=== PATIENT | female | born 1975 | race African-American/Black ===

== ENCOUNTER 2017-04-04 06:37 | Emergency (ER) | payer MEDICAID ==
[~2017-04-04] VITALS: Ht 162.6 cm; Wt 59.0 kg
[~2017-04-04 06:37] MED LIST: BACL-141 PO; CHOL100026 PO; CITA10TA69; CYCL-108 PO; GABA-531 PO; LORA1TAB PO; MORP15TA67; OMEP20TA80 PO; ONDA4TAB5 PO; PROT40 PO; SUCR1TAB; TECFIDERA PO
[2017-04-04] MEDS ORDERED: ONDANSETRON HCL 4MG/2ML VIAL IV ONE (07:30)
[2017-04-04] MEDS ORDERED: METHYLPREDNISOLONE SOD SUCC 125 MG/2 ML VIAL IV ONE (07:30)
[2017-04-04] MEDS ORDERED: FAMOTIDINE 20MG/2ML VIAL IV ONE (07:30)
[2017-04-04] MEDS ORDERED: BACLOFEN 10MG TABLET PO ONE (07:30)
[2017-04-04] MEDS ORDERED: MORPHINE SULFATE 2 MG/ML CPJ (NOT FOR IM USE) IV ONE (07:30)
[2017-04-04] MEDS ORDERED: SODIUM CHLORIDE 0.9% 1,000 ML IV ONE (07:30)
[2017-04-04] MEDS ORDERED: DIPHENHYDRAMINE 50MG/ML VIAL IV ONE (08:30)
[2017-04-04 08:56] LABS: BASOPHILS % 0.2 % (0.0-2.0); EOSINOPHILS % 0.2 % (0.0-5.0); HEMATOCRIT. 38.8 % (36.0-48.0); HEMOGLOBIN. 13.3 g/dL (12.0-16.0); LYMPHOCYTES % 8.5 % (20.0-50.0); MEAN CORPUSCULAR HEMOGLOBIN 32.8 pg (28.0-32.0); MEAN CORPUSCULAR HGB CONC 34.3 g/dL (31.0-37.0); MEAN CORPUSCULAR VOLUME 95.5 fL (81.0-99.0); MEAN PLATELET VOLUME 7.2 fl (7.4-10.4); MONOCYTES % 5.7 % (2.0-8.0); NEUTROPHILS % 85.4 % (40.0-76.0); PLATELET 199 x1000/uL (130-400); RED BLOOD CELL COUNT 4.06 mill/uL (4.2-5.4); RED CELL DISTRIBUTION WIDTH 14.3 % (11.6-14.6); WHITE BLOOD COUNT 9.1 x1000/uL (4.5-11.0)
[2017-04-04 09:08] LABS: ANION GAP 12; CALCIUM 8.6 mg/dL (8.5-10.1); CARBON DIOXIDE 23 mEq/L (21-32); CHLORIDE 108 mEq/L (98-107); INDEX HEMOLYSI 2 (1-3); INDEX ICTERIC 1 (1-4); INDEX LIPEMIC 1 (1-3); UREA NITROGEN BLOOD 12 mg/dL (7-21)
[2017-04-04 09:10] LABS: eGFR > 60 mL/min (>60)
[2017-04-04 09:59] VITALS: BP 108/65
[2017-04-04] MEDS ORDERED: ACETAMINOPHEN WITH CODEINE 300/30MG TABLET PO ONE (10:00)
== END 2017-04-04 10:01 | disposition home or self-care (01) ==
LOC: ER 07:26
DX: G35 Multiple sclerosis (principal); Z88.0 Allergy status to penicillin; Z79.82 Long term (current) use of aspirin; Z79.899 Other long term (current) drug therapy; Z98.51 Tubal ligation status; Z82.49 Family history of ischemic heart disease and other diseases of the circulatory system
CPT/HCPCS: 36415; 80048; 85025; 96374; 96375; 99284; J1200; J2270; J2405; J2930; J3490; J7030

== ENCOUNTER 2017-07-22 20:56 | Inpatient (IN) | payer MEDICAID ==
[~2017-07-22] VITALS: Ht 162.6 cm; Wt 56.0 kg
[~2017-07-22 20:56] MED LIST changes: -CHOL100026 PO; +CHOL100044 PO; +CITA10TA16; -CITA10TA69; -MORP15TA67; +MORP15TA67 PO; +OMEP20TA2 PO; -OMEP20TA80 PO
[2017-07-22] MEDS ORDERED: LORAZEPAM 2MG/ML CPJ IV ONE (21:30)
[2017-07-22 22:10] LABS: HEMATOCRIT. 33.2 % (36.0-48.0); HEMOGLOBIN. 11.5 g/dL (12.0-16.0); MEAN CORPUSCULAR HEMOGLOBIN 33.1 pg (28.0-32.0); MEAN CORPUSCULAR VOLUME 95.9 fL (81.0-99.0); MEAN PLATELET VOLUME 7.4 fl (7.4-10.4); PLATELET 207 x1000/uL (130-400); RED BLOOD CELL COUNT 3.46 mill/uL (4.2-5.4); RED CELL DISTRIBUTION WIDTH 13.3 % (11.6-14.6)
[2017-07-22 22:19] LABS: CARBON DIOXIDE 23 mEq/L (21-32); CHLORIDE 105 mEq/L (98-107); ETHANOL BLOOD < 10 mg/dL
[2017-07-22] MEDS ORDERED: ACETAMINOPHEN WITH CODEINE 300/30MG TABLET PO ONE (22:30)
[2017-07-22 23:21] LABS: CLARITY URINE CLEAR (CLEAR); COLOR URINE DARK YELLOW (YELLOW); GLUCOSE URINE NEGATIVE (NEGATIVE); KETONES URINE 1+ (NEGATIVE); LEUKOCYTE ESTERASE URINE TRACE (NEGATIVE); NITRITE URINE NEGATIVE (NEGATIVE); OCCULT BLOOD URINE TRACE (NEGATIVE); PH URINE 5.5 (4.5-8.0); PROTEIN URINE NEGATIVE (NEGATIVE); SPECIFIC GRAVITY URINE 1.022 (1.005-1.030)
[2017-07-22] MEDS ORDERED: MORPHINE SULFATE 4 MG/ML CPJ (NOT FOR IM USE) IV ONE (23:30)
[2017-07-22] MEDS ORDERED: DIPHENHYDRAMINE 50MG/ML VIAL IV ONE (23:30)
[2017-07-22 23:36] LABS: PLATELET ESTIMATE NORMAL
[2017-07-22 23:38] LABS: *AMPHETAMINES SCREEN URINE NEGATIVE (NEGATIVE); *BARBITURATES SCREEN URINE NEGATIVE (NEGATIVE); *BENZODIAZEPINES SCREEN URINE NEGATIVE (NEGATIVE); *COCAINE SCREEN URINE NEGATIVE (NEGATIVE); METHADONE URINE SCREEN NEGATIVE (NEGATIVE); PHENCYCLIDINE URINE SCREEN NEGATIVE (NEGATIVE)
[2017-07-22 23:41] LABS: CANNABINOID URINE SCREEN PRESUMTIVE POSITIVE (NEGATIVE); OPIATES URINE SCREEN PRESUMTIVE POSITIVE (NEGATIVE)
[2017-07-23] VITALS (7 sets, daily range): BP systolic 96–122; BP diastolic 44–68
[2017-07-23] MEDS ORDERED: CLONIDINE 0.1MG TABLET PO PRN (00:15)
[2017-07-23] MEDS ORDERED: MAGNESIUM/ALUMINUM HYDROXIDE/SIMETHICONE 30ML UDC PO PRN (00:15)
[2017-07-23] MEDS ORDERED: ONDANSETRON HCL 4MG/2ML VIAL IV PRN (00:15)
[2017-07-23] MEDS ORDERED: ACETAMINOPHEN 325MG TABLET PO PRN (00:15)
[2017-07-23] MEDS ORDERED: IPRATROPIUM/ALBUTEROL 0.5-3(2.5)MG/3ML NEB INH PRN (00:15)
[2017-07-23] MEDS ORDERED: POTASSIUM CHLORIDE 20MEQ TABLET SR PO SCH (06:00)
[2017-07-23] MEDS: HYDROCODONE/ACETAMINOPHEN 5/325MG TABLET PO PRN (07:56)
[2017-07-23] MEDS: LORAZEPAM 2MG/ML CPJ IV PRN ×2 (07:56→19:50)
[2017-07-23 07:57] LABS: CLARITY URINE CLEAR (CLEAR); COLOR URINE YELLOW (YELLOW); GLUCOSE URINE NEGATIVE (NEGATIVE); KETONES URINE 1+ (NEGATIVE); LEUKOCYTE ESTERASE URINE NEGATIVE (NEGATIVE); NITRITE URINE NEGATIVE (NEGATIVE); OCCULT BLOOD URINE 1+ (NEGATIVE); PROTEIN URINE NEGATIVE (NEGATIVE); SPECIFIC GRAVITY URINE 1.015 (1.005-1.030); UROBILINOGEN URINE 0.2 E.U./dL (0.2-1.0)
[2017-07-23 08:35] LABS: CARBON DIOXIDE 22 mEq/L (21-32); CHLORIDE 104 mEq/L (98-107)
[2017-07-23 08:45] LABS: CREATINE KINASE 63 IU/L (26-192); CREATINE KINASE MB FRACTION < 0.5 ng/mL (0.5-3.6); TROPONIN I < 0.02 ng/mL (0.00-0.04)
[2017-07-23] MEDS: LEVETIRACETAM 500MG/5ML CUP PO SCH ×2 (09:45→21:07)
[2017-07-23] MEDS: CHOLECALCIFEROL (D3) 1000 UNIT TABLET PO SCH (09:46)
[2017-07-23] MEDS: GABAPENTIN 300MG CAPSULE PO SCH ×3 (09:46→17:14)
[2017-07-23] MEDS: CYCLOBENZAPRINE 10MG TABLET PO SCH (09:47)
[2017-07-23] MEDS: BACLOFEN 10MG TABLET PO SCH ×3 (09:47→17:14)
[2017-07-23] MEDS: LORAZEPAM 1MG TABLET PO PRN (09:47)
[2017-07-23] MEDS: SODIUM CHLORIDE 0.9% 1,000 ML IV SCH (11:14)
[2017-07-23] MEDS: DIPHENHYDRAMINE 50MG/ML VIAL IV PRN ×2 (13:43→21:09)
[2017-07-23 15:53] LABS: CREATINE KINASE 57 IU/L (26-192); CREATINE KINASE MB FRACTION 0.6 ng/mL (0.5-3.6); TROPONIN I < 0.02 ng/mL (0.00-0.04)
[2017-07-23] MEDS: MORPHINE SULFATE 2 MG/ML CPJ (NOT FOR IM USE) IV PRN ×2 (17:15→21:12)
[2017-07-24] VITALS: BP 117/81
[2017-07-24] MEDS: LORAZEPAM 2MG/ML CPJ IV PRN ×2 (00:38→13:12)
[2017-07-24] MEDS: MORPHINE SULFATE 2 MG/ML CPJ (NOT FOR IM USE) IV PRN ×3 (01:04→09:17)
[2017-07-24] MEDS: SODIUM CHLORIDE 0.9% 1,000 ML IV SCH ×2 (01:04→21:18)
[2017-07-24] MEDS: DIPHENHYDRAMINE 50MG/ML VIAL IV PRN ×3 (03:09→23:00)
[2017-07-24 04:00] VITALS: BP 119/74
[2017-07-24 07:11] LABS: BASOPHILS % 0.4 % (0.0-2.0); EOSINOPHILS % 4.2 % (0.0-5.0); HEMATOCRIT. 34.8 % (36.0-48.0); LYMPHOCYTES % 18.2 % (20.0-50.0); MEAN CORPUSCULAR HEMOGLOBIN 33.1 pg (28.0-32.0); MEAN CORPUSCULAR VOLUME 96.4 fL (81.0-99.0); MEAN PLATELET VOLUME 7.4 fl (7.4-10.4); MONOCYTES % 13.7 % (2.0-8.0); NEUTROPHILS % 63.5 % (40.0-76.0); PLATELET 238 x1000/uL (130-400); RED BLOOD CELL COUNT 3.61 mill/uL (4.2-5.4); RED CELL DISTRIBUTION WIDTH 13.2 % (11.6-14.6)
[2017-07-24 08:00] VITALS: BP 116/72
[2017-07-24 08:49] LABS: CARBON DIOXIDE 22 mEq/L (21-32); CHLORIDE 108 mEq/L (98-107); HDL CHOLESTEROL 51 mg/dL (40-59); LDL CHOLESTEROL 191 mg/dL (5-100)
[2017-07-24] MEDS: GABAPENTIN 300MG CAPSULE PO SCH ×3 (08:54→17:29)
[2017-07-24] MEDS: BACLOFEN 10MG TABLET PO SCH ×3 (08:54→17:29)
[2017-07-24] MEDS: CYCLOBENZAPRINE 10MG TABLET PO SCH (08:59)
[2017-07-24] MEDS: CHOLECALCIFEROL (D3) 1000 UNIT TABLET PO SCH (08:59)
[2017-07-24] MEDS: LEVETIRACETAM 500MG/5ML CUP PO SCH ×3 (09:00→21:17)
[2017-07-24] MEDS: LORAZEPAM 1MG TABLET PO PRN ×2 (09:00→23:17)
[2017-07-24 12:00] VITALS: BP 100/66
[2017-07-24] MEDS: HYDROMORPHONE HCL/PF 2MG/ML CPJ IV PRN ×2 (15:06→21:18)
[2017-07-24 16:30] VITALS: BP 102/66
[2017-07-24 20:00] VITALS: BP 99/69
[2017-07-24] MEDS: ATORVASTATIN CALCIUM 20MG TABLET PO SCH (21:17)
[2017-07-25] VITALS: BP 99/58
[2017-07-25] MEDS: LORAZEPAM 2MG/ML CPJ IV PRN (01:15)
[2017-07-25] MEDS: HYDROMORPHONE HCL/PF 2MG/ML CPJ IV PRN ×5 (03:36→20:59)
[2017-07-25 04:10] VITALS: BP 115/76
[2017-07-25] MEDS: DIPHENHYDRAMINE 50MG/ML VIAL IV PRN ×3 (05:16→22:30)
[2017-07-25 07:36] LABS: HEMATOCRIT. 36.5 % (36.0-48.0); HEMOGLOBIN. 12.4 g/dL (12.0-16.0); MEAN CORPUSCULAR VOLUME 96.8 fL (81.0-99.0); MEAN PLATELET VOLUME 7.4 fl (7.4-10.4); PLATELET 240 x1000/uL (130-400); RED BLOOD CELL COUNT 3.76 mill/uL (4.2-5.4); RED CELL DISTRIBUTION WIDTH 13.1 % (11.6-14.6)
[2017-07-25 07:57] LABS: CARBON DIOXIDE 25 mEq/L (21-32); CHLORIDE 104 mEq/L (98-107)
[2017-07-25 08:00] VITALS: BP 99/69
[2017-07-25] MEDS: GABAPENTIN 300MG CAPSULE PO SCH ×3 (08:00→16:41)
[2017-07-25] MEDS: CHOLECALCIFEROL (D3) 1000 UNIT TABLET PO SCH (08:00)
[2017-07-25] MEDS: CYCLOBENZAPRINE 10MG TABLET PO SCH (08:00)
[2017-07-25] MEDS: LEVETIRACETAM 500MG/5ML CUP PO SCH ×2 (08:00→20:34)
[2017-07-25] MEDS: BACLOFEN 10MG TABLET PO SCH ×3 (08:00→16:41)
[2017-07-25 12:00] VITALS: BP 100/70
[2017-07-25] MEDS: SODIUM CHLORIDE 0.9% 1,000 ML IV SCH (12:30)
[2017-07-25] MEDS: TECFIDERA 240MG PO SCH ×2 (13:00→16:41)
[2017-07-25] MEDS: LORAZEPAM 1MG TABLET PO PRN (13:43)
[2017-07-25 14:33] LABS: PLATELET ESTIMATE NORMAL
[2017-07-25] MEDS: HYDROCODONE/ACETAMINOPHEN 5/325MG TABLET PO PRN (15:26)
[2017-07-25 16:00] VITALS: BP 90/61
[2017-07-25 20:00] VITALS: BP 97/59
[2017-07-25] MEDS: ATORVASTATIN CALCIUM 20MG TABLET PO SCH (20:34)
[2017-07-25] MEDS ORDERED: ZOLPIDEM TARTRATE 5MG TABLET PO PRN (22:00)
[2017-07-26] VITALS (7 sets, daily range): BP systolic 101–113; BP diastolic 47–74
[2017-07-26] MEDS: HYDROMORPHONE HCL/PF 2MG/ML CPJ IV PRN ×2 (01:04→12:43)
[2017-07-26] MEDS: LORAZEPAM 2MG/ML CPJ IV PRN ×2 (04:04→08:22)
[2017-07-26] MEDS: SODIUM CHLORIDE 0.9% 1,000 ML IV SCH (05:25)
[2017-07-26 06:40] LABS: BASOPHILS % 0.3 % (0.0-2.0); EOSINOPHILS % 4.1 % (0.0-5.0); HEMATOCRIT. 33.7 % (36.0-48.0); HEMOGLOBIN. 11.6 g/dL (12.0-16.0); LYMPHOCYTES % 14.6 % (20.0-50.0); MEAN CORPUSCULAR HEMOGLOBIN 32.9 pg (28.0-32.0); MEAN CORPUSCULAR VOLUME 95.9 fL (81.0-99.0); MEAN PLATELET VOLUME 7.3 fl (7.4-10.4); MONOCYTES % 14.8 % (2.0-8.0); NEUTROPHILS % 66.2 % (40.0-76.0); PLATELET 229 x1000/uL (130-400); RED BLOOD CELL COUNT 3.52 mill/uL (4.2-5.4); RED CELL DISTRIBUTION WIDTH 12.6 % (11.6-14.6)
[2017-07-26 07:14] LABS: CARBON DIOXIDE 25 mEq/L (21-32); CHLORIDE 104 mEq/L (98-107)
[2017-07-26] MEDS: CHOLECALCIFEROL (D3) 1000 UNIT TABLET PO SCH (08:22)
[2017-07-26] MEDS: LEVETIRACETAM 500MG/5ML CUP PO SCH (08:22)
[2017-07-26] MEDS: GABAPENTIN 300MG CAPSULE PO SCH ×3 (08:23→16:09)
[2017-07-26] MEDS: BACLOFEN 10MG TABLET PO SCH ×3 (08:23→16:09)
[2017-07-26] MEDS: CYCLOBENZAPRINE 10MG TABLET PO SCH (08:23)
[2017-07-26] MEDS: TECFIDERA 240MG PO SCH ×2 (08:24→17:00)
[2017-07-26] MEDS: LORAZEPAM 1MG TABLET PO PRN (16:09)
[2017-07-26] MEDS: HYDROCODONE/ACETAMINOPHEN 5/325MG TABLET PO PRN (17:28)
== END 2017-07-26 18:10 | disposition home or self-care (01) | DRG 53 ==
LOC: ER 20:56 → 7WST 23:20 → EDBEDREQ 23:23 → ENRESERV 23:42
PROVIDERS: ADMIT Internal Medicine; ATTEND Internal Medicine
DX: G40.909 Epilepsy, unspecified, not intractable, without status epilepticus (principal); G35 Multiple sclerosis; F32.9 Major depressive disorder, single episode, unspecified; E87.6 Hypokalemia; K21.9 Gastro-esophageal reflux disease without esophagitis; D64.9 Anemia, unspecified; F12.90 Cannabis use, unspecified, uncomplicated; F41.9 Anxiety disorder, unspecified; Z79.899 Other long term (current) drug therapy; Z82.49 Family history of ischemic heart disease and other diseases of the circulatory system; Z87.11 Personal history of peptic ulcer disease; Z91.14 Patient's other noncompliance with medication regimen; Z88.6 Allergy status to analgesic agent; Z88.0 Allergy status to penicillin; Z88.8 Allergy status to other drugs, medicaments and biological substances
CPT/HCPCS: 36415; 70450; 70551; 71010; 80048; 80053; 80061; 80305; 81001; 82550; 82553; 84443; 84484; 85025; 93970; 96374; 97166; 99285; C1893; G0482; J1170; J1200; J2060; J2270; J2405; J7030

== ENCOUNTER 2018-11-03 06:38 | Inpatient (IN) | payer MEDICAID ==
[~2018-11-03] VITALS: Ht 162.6 cm; Wt 60.3 kg
[~2018-11-03 06:38] MED LIST changes: +ATOR10TA69 PO; +DIPH25CA83 PO; +GABA800T PO; +LEVE500T19 PO; +MIDO5TAB PO; -MORP15TA67 PO; +ZOLP10TA2 PO
[2018-11-03] MEDS ORDERED: SODIUM CHLORIDE 0.9% 1,000 ML IV ONE ×2 (07:09→08:36)
[2018-11-03] MEDS ORDERED: FAMOTIDINE 20MG/2ML VIAL IV STA (07:09)
[2018-11-03] MEDS ORDERED: LORAZEPAM 2MG/ML CPJ IV ONE ×2 (07:15→08:45)
[2018-11-03] MEDS ORDERED: FENTANYL CITRATE/PF 50MCG/ML 2ML VIAL IV ONE ×2 (07:15→08:45)
[2018-11-03] MEDS ORDERED: DEXAMETHASONE 10 MG/ML VIAL IV ONE (07:15)
[2018-11-03] MEDS ORDERED: ONDANSETRON HCL 4MG/2ML INJ IV ONE (07:15)
[2018-11-03] MEDS ORDERED: LOPERAMIDE 2 MG/10 ML UDC PO ONE (07:45)
[2018-11-03 08:02] LABS: BASOPHILS % 0.2 % (0.0-2.0); EOSINOPHILS % 0.8 % (0.0-5.0); HEMATOCRIT. 35.5 % (36.0-48.0); HEMOGLOBIN. 12.1 g/dL (12.0-16.0); LYMPHOCYTES % 11.1 % (20.0-50.0); MEAN CORPUSCULAR HEMOGLOBIN 33.2 pg (28.0-32.0); MEAN CORPUSCULAR VOLUME 97.5 fL (81.0-99.0); MEAN PLATELET VOLUME 7.4 fl (7.4-10.4); MONOCYTES % 11.9 % (2.0-8.0); PLATELET 198 x1000/uL (130-400); RED BLOOD CELL COUNT 3.64 mill/uL (4.2-5.4); RED CELL DISTRIBUTION WIDTH 13.1 % (11.6-14.6)
[2018-11-03 08:05] LABS: CHLORIDE 106 mEq/L (98-107)
[2018-11-03 08:08] LABS: INR 1.1; PARTIAL THROMBOPLASTIN TIME 25.5 sec (23.4-31.0); PROTHROMBIN TIME 10.7 sec (9.1-11.1)
[2018-11-03 08:15] LABS: CLARITY URINE CLEAR (CLEAR); COLOR URINE YELLOW (YELLOW); KETONES URINE 1+ (NEGATIVE); LEUKOCYTE ESTERASE URINE NEGATIVE (NEGATIVE); NITRITE URINE NEGATIVE (NEGATIVE); OCCULT BLOOD URINE TRACE (NEGATIVE); PH URINE 5.5 (4.5-8.0); PROTEIN URINE NEGATIVE (NEGATIVE); SPECIFIC GRAVITY URINE 1.015 (1.005-1.030)
[2018-11-03 08:20] LABS: HCG SCREEN NEGATIVE
[2018-11-03] MEDS ORDERED: IPRATROPIUM/ALBUTEROL 0.5-3(2.5)MG/3ML NEB INH PRN (10:30)
[2018-11-03] MEDS ORDERED: CLONIDINE 0.1MG TABLET PO PRN (10:30)
[2018-11-03] MEDS ORDERED: HYDROCODONE/ACETAMINOPHEN 5/325MG TABLET PO PRN (10:30)
[2018-11-03] MEDS ORDERED: DOCUSATE SODIUM 100MG CAPSULE PO PRN (10:30)
[2018-11-03] MEDS ORDERED: ACETAMINOPHEN 325MG TABLET PO PRN (10:30)
[2018-11-03] MEDS ORDERED: POTASSIUM CHLORIDE 20MEQ/PACKET PO NR (10:30)
[2018-11-03 11:20] VITALS: BP 104/63
[2018-11-03 14:09] VITALS: BP 104/63
[2018-11-03] MEDS: CYCLOBENZAPRINE 10MG TABLET PO SCH ×2 (14:35→21:52)
[2018-11-03 16:00] VITALS: BP 110/73
[2018-11-03] MEDS: CHOLECALCIFEROL (D3) 1000 UNIT TABLET PO SCH (16:06)
[2018-11-03] MEDS: HYDROMORPHONE HCL/PF 2MG/ML CPJ IV PRN ×2 (16:07→20:28)
[2018-11-03] MEDS: BISACODYL 10MG SUPP PR SCH (17:15)
[2018-11-03] MEDS ORDERED: GADOBENATE DIMEGLUMINE 529 MG/ML 10ML IV ONE (19:24)
[2018-11-03 20:00] VITALS: BP 113/59
[2018-11-03] MEDS: ATORVASTATIN CALCIUM 10MG TABLET PO SCH (20:27)
[2018-11-03] MEDS: DULOXETINE HCL 30MG DR CAPSULE PO SCH (20:27)
[2018-11-03] MEDS: SUCRALFATE 1G TABLET PO SCH (20:28)
[2018-11-03] MEDS: LEVETIRACETAM 500MG TABLET PO SCH (20:28)
[2018-11-03] MEDS: TECFIDERA 240 MG PO SCH (21:52)
[2018-11-03] MEDS: DIPHENHYDRAMINE 25MG CAPSULE PO PRN (22:25)
[2018-11-03] MEDS: GABAPENTIN 400MG CAPSULE PO SCH (23:12)
[2018-11-03] MEDS: ZOLPIDEM TARTRATE 5MG TABLET PO PRN (23:13)
[2018-11-04] VITALS: BP 115/64
[2018-11-04] MEDS: HYDROMORPHONE HCL/PF 2MG/ML CPJ IV PRN ×5 (00:19→22:18)
[2018-11-04 03:34] LABS: *AMPHETAMINES SCREEN URINE NEGATIVE (NEGATIVE); *BARBITURATES SCREEN URINE NEGATIVE (NEGATIVE); *BENZODIAZEPINES SCREEN URINE NEGATIVE (NEGATIVE); *COCAINE SCREEN URINE NEGATIVE (NEGATIVE)
[2018-11-04 03:35] LABS: METHADONE URINE SCREEN NEGATIVE (NEGATIVE); OPIATES URINE SCREEN NEGATIVE (NEGATIVE); PHENCYCLIDINE URINE SCREEN NEGATIVE (NEGATIVE)
[2018-11-04 03:36] LABS: CANNABINOID URINE SCREEN PRESUMTIVE POSITIVE (NEGATIVE)
[2018-11-04 04:00] VITALS: BP 114/50
[2018-11-04] MEDS: CYCLOBENZAPRINE 10MG TABLET PO SCH ×3 (05:04→21:55)
[2018-11-04] MEDS: ONDANSETRON HCL 4MG/2ML INJ IV PRN ×2 (05:04→22:17)
[2018-11-04] MEDS: DIPHENHYDRAMINE 25MG CAPSULE PO PRN (05:04)
[2018-11-04] MEDS: GABAPENTIN 400MG CAPSULE PO SCH ×3 (05:04→21:55)
[2018-11-04 06:38] LABS: BASOPHILS % 0.1 % (0.0-2.0); EOSINOPHILS % 0.4 % (0.0-5.0); HEMATOCRIT. 33.9 % (36.0-48.0); HEMOGLOBIN. 11.6 g/dL (12.0-16.0); LYMPHOCYTES % 14.4 % (20.0-50.0); MEAN CORPUSCULAR HEMOGLOBIN 33.4 pg (28.0-32.0); MEAN CORPUSCULAR VOLUME 97.3 fL (81.0-99.0); MEAN PLATELET VOLUME 7.1 fl (7.4-10.4); MONOCYTES % 12.4 % (2.0-8.0); NEUTROPHILS % 72.7 % (40.0-76.0); PLATELET 190 x1000/uL (130-400); RED BLOOD CELL COUNT 3.48 mill/uL (4.2-5.4); RED CELL DISTRIBUTION WIDTH 12.9 % (11.6-14.6)
[2018-11-04] MEDS: OMEPRAZOLE 20MG CAPSULE EXTENDED RELEASE PO SCH (06:46)
[2018-11-04] MEDS: SUCRALFATE 1G TABLET PO SCH ×4 (06:46→22:17)
[2018-11-04 06:57] LABS: CHLORIDE 106 mEq/L (98-107)
[2018-11-04 07:05] LABS: LDL CHOLESTEROL 108 mg/dL (5-100)
[2018-11-04 07:07] LABS: HDL CHOLESTEROL 53 mg/dL (40-59)
[2018-11-04] MEDS: MIDODRINE HCL 5MG TABLET PO SCH ×3 (08:31→17:08)
[2018-11-04] MEDS: LEVETIRACETAM 500MG TABLET PO SCH ×2 (08:31→21:55)
[2018-11-04] MEDS: CITALOPRAM HYDROBROMIDE 10MG TABLET PO SCH (08:31)
[2018-11-04] MEDS: CHOLECALCIFEROL (D3) 1000 UNIT TABLET PO SCH (08:31)
[2018-11-04] MEDS: DOCUSATE SODIUM 100MG CAPSULE PO SCH ×2 (08:32→17:08)
[2018-11-04] MEDS: TECFIDERA 240 MG PO SCH ×2 (08:32→17:08)
[2018-11-04] MEDS: ASCORBIC ACID 500 MG TABLET PO SCH (08:32)
[2018-11-04] MEDS: ZINC SULFATE 220 MG ( 50 ) CAPSULE PO SCH (08:32)
[2018-11-04] MEDS: DULOXETINE HCL 30MG DR CAPSULE PO SCH ×2 (08:32→21:55)
[2018-11-04] MEDS: BISACODYL 10MG SUPP PR SCH (08:33)
[2018-11-04] MEDS ORDERED: CHOLECALCIFEROL (D3) 1000 UNIT TABLET PO SCH (09:00)
[2018-11-04] MEDS ORDERED: TAMS0.4C31 PO (11:53)
[2018-11-04] MEDS: BACITRACIN/POLYMYXIN B SULFATE OINT 15GM TOP SCH (16:00)
[2018-11-04] MEDS ORDERED: NA PHOS,M-B/NA PHOS,DI-BA ENEMA 118ML PR NR (16:30)
[2018-11-04] MEDS: LACTULOSE 20G/30ML UDC PO SCH ×2 (17:07→21:56)
[2018-11-04 20:00] VITALS: BP 104/66
[2018-11-04] MEDS: POLYETHYLENE GLYCOL 3350 (17GM) 1 DOSE PACK PO SCH (21:00)
[2018-11-04] MEDS: ATORVASTATIN CALCIUM 10MG TABLET PO SCH (21:55)
[2018-11-04] MEDS: ZOLPIDEM TARTRATE 5MG TABLET PO PRN (22:17)
[2018-11-05] VITALS: BP 106/57
[2018-11-05 04:00] VITALS: BP 99/63
[2018-11-05] MEDS: OMEPRAZOLE 20MG CAPSULE EXTENDED RELEASE PO SCH (05:54)
[2018-11-05] MEDS: CYCLOBENZAPRINE 10MG TABLET PO SCH ×3 (05:54→21:54)
[2018-11-05] MEDS: SUCRALFATE 1G TABLET PO SCH ×4 (05:55→21:54)
[2018-11-05] MEDS: ONDANSETRON HCL 4MG/2ML INJ IV PRN ×2 (05:55→21:54)
[2018-11-05] MEDS: GABAPENTIN 400MG CAPSULE PO SCH ×3 (05:55→21:55)
[2018-11-05] MEDS: HYDROMORPHONE HCL/PF 2MG/ML CPJ IV PRN ×4 (05:56→21:57)
[2018-11-05 07:46] LABS: BASOPHILS % 0.3 % (0.0-2.0); EOSINOPHILS % 1.5 % (0.0-5.0); HEMATOCRIT. 36.3 % (36.0-48.0); HEMOGLOBIN. 12.3 g/dL (12.0-16.0); MEAN CORPUSCULAR HEMOGLOBIN 33.4 pg (28.0-32.0); MEAN CORPUSCULAR VOLUME 98.4 fL (81.0-99.0); MEAN PLATELET VOLUME 7.8 fl (7.4-10.4); MONOCYTES % 10.2 % (2.0-8.0); PLATELET 183 x1000/uL (130-400); RED BLOOD CELL COUNT 3.68 mill/uL (4.2-5.4); RED CELL DISTRIBUTION WIDTH 13.3 % (11.6-14.6)
[2018-11-05 08:14] LABS: CHLORIDE 102 mEq/L (98-107)
[2018-11-05] MEDS: LACTULOSE 20G/30ML UDC PO SCH (09:00)
[2018-11-05] MEDS: BISACODYL 10MG SUPP PR SCH (09:00)
[2018-11-05] MEDS: TECFIDERA 240 MG PO SCH ×2 (09:06→17:34)
[2018-11-05] MEDS: MIDODRINE HCL 5MG TABLET PO SCH ×3 (09:07→17:35)
[2018-11-05] MEDS: CITALOPRAM HYDROBROMIDE 10MG TABLET PO SCH (09:07)
[2018-11-05] MEDS: CHOLECALCIFEROL (D3) 1000 UNIT TABLET PO SCH (09:07)
[2018-11-05] MEDS: ZINC SULFATE 220 MG ( 50 ) CAPSULE PO SCH (09:07)
[2018-11-05] MEDS: LEVETIRACETAM 500MG TABLET PO SCH ×2 (09:07→21:54)
[2018-11-05] MEDS: ASCORBIC ACID 500 MG TABLET PO SCH (09:08)
[2018-11-05] MEDS: DULOXETINE HCL 30MG DR CAPSULE PO SCH ×2 (09:08→21:54)
[2018-11-05] MEDS: DOCUSATE SODIUM 100MG CAPSULE PO SCH ×2 (09:08→17:35)
[2018-11-05] MEDS: BACITRACIN/POLYMYXIN B SULFATE OINT 15GM TOP SCH (09:09)
[2018-11-05] MEDS ORDERED: TRAMADOL 50MG TABLET PO PRN (11:00)
[2018-11-05] MEDS: PREDNISONE 5MG TABLET PO SCH (11:25)
[2018-11-05] MEDS: SODIUM CHLORIDE 0.9% 500 ML IV ONE ×2 (11:26→13:49)
[2018-11-05] MEDS: OXYCODONE HCL 5MG TABLET PO SCH (17:00)
[2018-11-05 20:00] VITALS: BP 117/71
[2018-11-05] MEDS: POLYETHYLENE GLYCOL 3350 (17GM) 1 DOSE PACK PO SCH (21:00)
[2018-11-05] MEDS: ATORVASTATIN CALCIUM 10MG TABLET PO SCH (22:12)
[2018-11-05] MEDS: ZOLPIDEM TARTRATE 5MG TABLET PO PRN (23:09)
[2018-11-06] VITALS: BP 124/74
[2018-11-06 04:00] VITALS: BP 133/73
[2018-11-06] MEDS: SUCRALFATE 1G TABLET PO SCH ×2 (06:29→12:58)
[2018-11-06] MEDS: CYCLOBENZAPRINE 10MG TABLET PO SCH ×2 (06:29→15:00)
[2018-11-06] MEDS: OMEPRAZOLE 20MG CAPSULE EXTENDED RELEASE PO SCH (06:29)
[2018-11-06] MEDS: GABAPENTIN 400MG CAPSULE PO SCH ×2 (06:29→15:00)
[2018-11-06] MEDS: ONDANSETRON HCL 4MG/2ML INJ IV PRN (06:51)
[2018-11-06] MEDS: HYDROMORPHONE HCL/PF 2MG/ML CPJ IV PRN ×2 (06:52→11:23)
[2018-11-06 07:07] LABS: BASOPHILS % 0.2 % (0.0-2.0); EOSINOPHILS % 2.5 % (0.0-5.0); HEMATOCRIT. 36.6 % (36.0-48.0); HEMOGLOBIN. 12.4 g/dL (12.0-16.0); MEAN CORPUSCULAR VOLUME 97.5 fL (81.0-99.0); MEAN PLATELET VOLUME 7.3 fl (7.4-10.4); MONOCYTES % 12.2 % (2.0-8.0); NEUTROPHILS % 64.1 % (40.0-76.0); PLATELET 186 x1000/uL (130-400); RED BLOOD CELL COUNT 3.76 mill/uL (4.2-5.4); RED CELL DISTRIBUTION WIDTH 13.2 % (11.6-14.6)
[2018-11-06 07:33] LABS: CHLORIDE 102 mEq/L (98-107)
[2018-11-06] MEDS: BISACODYL 10MG SUPP PR SCH (09:00)
[2018-11-06] MEDS: TECFIDERA 240 MG PO SCH (09:06)
[2018-11-06] MEDS: BACITRACIN/POLYMYXIN B SULFATE OINT 15GM TOP SCH (09:10)
[2018-11-06] MEDS: LEVETIRACETAM 500MG TABLET PO SCH (09:10)
[2018-11-06] MEDS: ASCORBIC ACID 500 MG TABLET PO SCH (09:11)
[2018-11-06] MEDS: DOCUSATE SODIUM 100MG CAPSULE PO SCH (09:11)
[2018-11-06] MEDS: PREDNISONE 5MG TABLET PO SCH (09:11)
[2018-11-06] MEDS: ZINC SULFATE 220 MG ( 50 ) CAPSULE PO SCH (09:11)
[2018-11-06] MEDS: DULOXETINE HCL 30MG DR CAPSULE PO SCH (09:11)
[2018-11-06] MEDS: MIDODRINE HCL 5MG TABLET PO SCH ×2 (09:11→12:59)
[2018-11-06] MEDS: CITALOPRAM HYDROBROMIDE 10MG TABLET PO SCH (09:11)
[2018-11-06] MEDS: OXYCODONE HCL 5MG TABLET PO SCH ×2 (09:12→12:59)
[2018-11-06] MEDS: CHOLECALCIFEROL (D3) 1000 UNIT TABLET PO SCH (09:13)
[2018-11-06] MEDS ORDERED: OR220 PO (09:28)
[2018-11-06] MEDS ORDERED: PRED5TAB PO (09:28)
[2018-11-06] MEDS ORDERED: ASCO500T20 PO (09:28)
[2018-11-06] MEDS ORDERED: POLY17PO3 PO (09:28)
[2018-11-06] MEDS ORDERED: DOCU-138 PO (09:31)
[2018-11-06] MEDS ORDERED: POLYETHYLENE GLYCOL 3350 (17GM) 1 DOSE PACK PO SCH (14:30)
[2018-11-06 15:42] VITALS: BP 146/75
[2018-11-06 16:09] VITALS: BP 141/77
== END 2018-11-06 17:25 | disposition home health service (06) | DRG 347 ==
LOC: ER 06:38 → 6EST 08:56 → EDBEDREQ 09:04 → ENRESERV 10:09
PROVIDERS: ADMIT Internal Medicine; ATTEND Internal Medicine
DX: M48.061 Spinal stenosis, lumbar region without neurogenic claudication (principal); G82.50 Quadriplegia, unspecified; M48.02 Spinal stenosis, cervical region; G35 Multiple sclerosis; G95.9 Disease of spinal cord, unspecified; K59.2 Neurogenic bowel, not elsewhere classified; M54.16 Radiculopathy, lumbar region; L89.90 Pressure ulcer of unspecified site, unspecified stage; N31.9 Neuromuscular dysfunction of bladder, unspecified; M47.9 Spondylosis, unspecified; F41.9 Anxiety disorder, unspecified; E87.6 Hypokalemia; E78.00 Pure hypercholesterolemia, unspecified; G89.4 Chronic pain syndrome; G40.909 Epilepsy, unspecified, not intractable, without status epilepticus; F12.90 Cannabis use, unspecified, uncomplicated; F32.9 Major depressive disorder, single episode, unspecified; K21.9 Gastro-esophageal reflux disease without esophagitis; M25.78 Osteophyte, vertebrae; Z82.49 Family history of ischemic heart disease and other diseases of the circulatory system; Z98.1 Arthrodesis status; Z98.82 Breast implant status; Z98.891 History of uterine scar from previous surgery; Z88.0 Allergy status to penicillin; Z88.8 Allergy status to other drugs, medicaments and biological substances; Z98.51 Tubal ligation status
CPT/HCPCS: 36415; 70553; 71045; 72148; 72156; 74018; 80048; 80061; 80305; 81025; 83735; 84484; 84703; 93005; 93970; 96361; 96374; 96375; 97110; 97162; 97166; 97530; 99291; A9577; J1100; J1170; J2060; J2405; J3010; J3490; J7030; J7512; Q0163

== ENCOUNTER 2018-11-14 10:17 | Inpatient (IN) | payer MEDICAID ==
[~2018-11-14] VITALS: Ht 167.6 cm; Wt 64.9 kg
[~2018-11-14 10:17] MED LIST changes: +ASCO500T20 PO; -BACL-141 PO; -CITA10TA16; +CITA10TA16 PO; +DOCU-138 PO; -GABA-531 PO; +OR220 PO; +POLY17PO3 PO; +PRED5TAB PO; -PROT40 PO; -SUCR1TAB; +SUCR1TAB PO; +TAMS0.4C31 PO
[2018-11-14] MEDS ORDERED: SODIUM CHLORIDE 0.9% 1,000 ML IV ONE (11:13)
[2018-11-14] MEDS ORDERED: ONDANSETRON HCL 4MG/2ML INJ IV ONE (11:15)
[2018-11-14] MEDS ORDERED: FENTANYL CITRATE/PF 50MCG/ML 2ML VIAL IV ONE (11:15)
[2018-11-14] MEDS ORDERED: METHYLPREDNISOLONE SOD SUCC 125 MG/2 ML VIAL IV ONE (11:15)
[2018-11-14 11:22] LABS: BASOPHILS % 0.2 % (0.0-2.0); EOSINOPHILS % 1.8 % (0.0-5.0); HEMATOCRIT. 32.5 % (36.0-48.0); HEMOGLOBIN. 11.3 g/dL (12.0-16.0); LYMPHOCYTES % 13.8 % (20.0-50.0); MEAN CORPUSCULAR HEMOGLOBIN 33.6 pg (28.0-32.0); MEAN CORPUSCULAR VOLUME 97.1 fL (81.0-99.0); MEAN PLATELET VOLUME 7.4 fl (7.4-10.4); MONOCYTES % 10.1 % (2.0-8.0); NEUTROPHILS % 74.1 % (40.0-76.0); PLATELET 228 x1000/uL (130-400); RED BLOOD CELL COUNT 3.35 mill/uL (4.2-5.4); RED CELL DISTRIBUTION WIDTH 13.1 % (11.6-14.6)
[2018-11-14 11:28] LABS: CHLORIDE 105 mEq/L (98-107)
[2018-11-14 11:33] LABS: ETHANOL BLOOD < 10 mg/dL
[2018-11-14 11:35] LABS: HCG SCREEN NEGATIVE
[2018-11-14] MEDS ORDERED: GADOBENATE DIMEGLUMINE 529 MG/ML 10ML IV ONE (15:06)
[2018-11-14 16:24] LABS: INR 1.1; PROTHROMBIN TIME 10.8 sec (9.1-11.1)
[2018-11-14] MEDS ORDERED: DOCUSATE SODIUM 100MG CAPSULE PO PRN (17:30)
[2018-11-14] MEDS ORDERED: NITROGLYCERIN 0.4MG TABLET SL SL PRN (17:30)
[2018-11-14] MEDS ORDERED: ONDANSETRON HCL 4MG/2ML INJ IV PRN (17:30)
[2018-11-14] MEDS ORDERED: GUAIFENESIN 200MG/10ML SUGAR FREE UDC PO PRN (17:30)
[2018-11-14] MEDS ORDERED: ZOLPIDEM TARTRATE 5MG TABLET PO PRN (17:30)
[2018-11-14] MEDS ORDERED: HALOPERIDOL LACTATE 5MG/ML VIAL IM PRN (17:30)
[2018-11-14] MEDS ORDERED: IPRATROPIUM/ALBUTEROL 0.5-3(2.5)MG/3ML NEB INH PRN (17:30)
[2018-11-14] MEDS ORDERED: CLONIDINE 0.1MG TABLET PO PRN (17:30)
[2018-11-14] MEDS ORDERED: NA PHOS,M-B/NA PHOS,DI-BA ENEMA 118ML PR PRN (17:30)
[2018-11-14] MEDS ORDERED: TRAMADOL 50MG TABLET PO PRN (17:30)
[2018-11-14] MEDS ORDERED: MAGNESIUM/ALUMINUM HYDROXIDE/SIMETHICONE 30ML UDC PO PRN (17:30)
[2018-11-14] MEDS: LORAZEPAM 1MG TABLET PO PRN ×2 (18:51→23:18)
[2018-11-14 20:00] VITALS: BP 131/78
[2018-11-14] MEDS ORDERED: POTASSIUM CHLORIDE 10MEQ TABLET SR PO SCH (20:00)
[2018-11-14 20:13] LABS: CLARITY URINE TURBID (CLEAR); COLOR URINE YELLOW (YELLOW); KETONES URINE 4+ (NEGATIVE); LEUKOCYTE ESTERASE URINE NEGATIVE (NEGATIVE); NITRITE URINE NEGATIVE (NEGATIVE); OCCULT BLOOD URINE 3+ (NEGATIVE); PROTEIN URINE 2+ (NEGATIVE); SPECIFIC GRAVITY URINE 1.027 (1.005-1.030)
[2018-11-14 20:18] VITALS: BP 131/78
[2018-11-14] MEDS: FAMOTIDINE 20MG TABLET PO SCH (20:26)
[2018-11-14] MEDS: LEVETIRACETAM 500MG/5ML CUP PO SCH (20:26)
[2018-11-14 20:29] LABS: *AMPHETAMINES SCREEN URINE NEGATIVE (NEGATIVE); *BARBITURATES SCREEN URINE NEGATIVE (NEGATIVE)
[2018-11-14 20:30] LABS: *BENZODIAZEPINES SCREEN URINE NEGATIVE (NEGATIVE); *COCAINE SCREEN URINE NEGATIVE (NEGATIVE); METHADONE URINE SCREEN NEGATIVE (NEGATIVE); PHENCYCLIDINE URINE SCREEN NEGATIVE (NEGATIVE)
[2018-11-14 20:35] LABS: CANNABINOID URINE SCREEN PRESUMTIVE POSITIVE (NEGATIVE); OPIATES URINE SCREEN PRESUMTIVE POSITIVE (NEGATIVE)
[2018-11-14] MEDS ORDERED: ENOXAPARIN 40MG/0.4ML SYR SUBCUT SCH (21:00)
[2018-11-14] MEDS ORDERED: ATORVASTATIN CALCIUM 10MG TABLET PO SCH (21:00)
[2018-11-14] MEDS: ACETAMINOPHEN 325MG TABLET PO PRN (23:22)
[2018-11-15] VITALS: BP 145/67
[2018-11-15 04:00] VITALS: BP 133/80
[2018-11-15] MEDS: ACETAMINOPHEN 325MG TABLET PO PRN (06:57)
[2018-11-15] MEDS: LORAZEPAM 1MG TABLET PO PRN (07:06)
[2018-11-15 08:00] VITALS: BP 141/66
[2018-11-15] MEDS: FAMOTIDINE 20MG TABLET PO SCH (08:57)
[2018-11-15] MEDS: LEVETIRACETAM 500MG/5ML CUP PO SCH (08:57)
[2018-11-15] MEDS ORDERED: TECFIDERA 240 MG PO SCH ×2 (09:00)
[2018-11-15 11:03] VITALS: BP 141/62
== END 2018-11-15 13:32 | disposition home or self-care (01) | DRG 43 ==
LOC: ER 10:17 → 7WST 13:59 → EDBEDREQ 14:05 → ENRESERV 14:21
PROVIDERS: ADMIT Internal Medicine; ATTEND Internal Medicine
DX: G35 Multiple sclerosis (principal); E83.51 Hypocalcemia; D63.8 Anemia in other chronic diseases classified elsewhere; E78.00 Pure hypercholesterolemia, unspecified; E78.5 Hyperlipidemia, unspecified; E87.6 Hypokalemia; G89.4 Chronic pain syndrome; K21.9 Gastro-esophageal reflux disease without esophagitis; R29.6 Repeated falls; Z76.5 Malingerer [conscious simulation]; Z82.49 Family history of ischemic heart disease and other diseases of the circulatory system; Z98.891 History of uterine scar from previous surgery; Z88.0 Allergy status to penicillin; Z88.6 Allergy status to analgesic agent; Z88.9 Allergy status to unspecified drugs, medicaments and biological substances; Z98.51 Tubal ligation status; F12.10 Cannabis abuse, uncomplicated; F11.10 Opioid abuse, uncomplicated
CPT/HCPCS: 36415; 70486; 70553; 71045; 72100; 72141; 73502; 80305; 83036; 83735; 83880; 84484; 84703; 93005; 96374; 96375; 99291; A9577; G0482; J1630; J1650; J2405; J2930; J3010; J7030

== ENCOUNTER 2018-12-29 11:14 | Emergency (ER) | payer MEDICAID | END 2018-12-29 13:03 | disposition left against medical advice (07) | LOC: ER 11:26 | DX: R68.89 Other general symptoms and signs (principal); Z53.21 Procedure and treatment not carried out due to patient leaving prior to being seen by health care provider ==

== ENCOUNTER 2018-12-31 07:55 | Emergency (ER) | payer MEDICAID ==
[~2018-12-31] VITALS: Ht 170.2 cm; Wt 70.0 kg
[2018-12-31] MEDS ORDERED: SODIUM CHLORIDE 0.9% 1,000 ML IV ONE (09:10)
[2018-12-31] MEDS ORDERED: METHYLPREDNISOLONE SOD SUCC 125 MG/2 ML VIAL IV ONE (09:15)
[2018-12-31 09:47] LABS: BASOPHILS % 0.2 % (0.0-2.0); EOSINOPHILS % 0.6 % (0.0-5.0); HEMATOCRIT. 34.1 % (36.0-48.0); HEMOGLOBIN. 11.5 g/dL (12.0-16.0); LYMPHOCYTES % 10.2 % (20.0-50.0); MEAN CORPUSCULAR HEMOGLOBIN 32.9 pg (28.0-32.0); MEAN CORPUSCULAR VOLUME 97.4 fL (81.0-99.0); MEAN PLATELET VOLUME 7.7 fl (7.4-10.4); MONOCYTES % 10.4 % (2.0-8.0); NEUTROPHILS % 78.6 % (40.0-76.0); PLATELET 166 x1000/uL (130-400)
[2018-12-31 09:53] LABS: CHLORIDE 105 mEq/L (98-107)
[2018-12-31] MEDS ORDERED: FENTANYL CITRATE/PF 50MCG/ML 2ML VIAL IV ONE (10:15)
[2018-12-31 11:25] VITALS: BP 122/73
== END 2018-12-31 15:06 | disposition home or self-care (01) ==
LOC: ER 07:55
DX: J06.9 Acute upper respiratory infection, unspecified (principal); G35 Multiple sclerosis; K21.9 Gastro-esophageal reflux disease without esophagitis; E78.00 Pure hypercholesterolemia, unspecified; Z88.0 Allergy status to penicillin; Z88.6 Allergy status to analgesic agent; Z98.51 Tubal ligation status
CPT/HCPCS: 36415; 71045; 80053; 84484; 85025; 87804; 96374; 96375; 99284; J2930; J3010; J7030

== ENCOUNTER 2019-03-17 18:32 | Inpatient (IN) | payer MEDICAID ==
[~2019-03-17] VITALS: Ht 162.6 cm; Wt 56.7 kg
[2019-03-17 19:22] LABS: BASOPHILS % 0.2 % (0.0-2.0); EOSINOPHILS % 1.7 % (0.0-5.0); HEMATOCRIT. 34.9 % (36.0-48.0); HEMOGLOBIN. 11.8 g/dL (12.0-16.0); LYMPHOCYTES % 13.2 % (20.0-50.0); MEAN CORPUSCULAR HEMOGLOBIN 32.6 pg (28.0-32.0); MEAN CORPUSCULAR VOLUME 96.3 fL (81.0-99.0); MEAN PLATELET VOLUME 7.7 fl (7.4-10.4); MONOCYTES % 11.3 % (2.0-8.0); NEUTROPHILS % 73.6 % (40.0-76.0); PLATELET 179 x1000/uL (130-400); RED BLOOD CELL COUNT 3.63 mill/uL (4.2-5.4); RED CELL DISTRIBUTION WIDTH 13.4 % (11.6-14.6)
[2019-03-17 19:23] LABS: COLOR URINE YELLOW (YELLOW); KETONES URINE 1+ (NEGATIVE); LEUKOCYTE ESTERASE URINE NEGATIVE (NEGATIVE); NITRITE URINE NEGATIVE (NEGATIVE); OCCULT BLOOD URINE TRACE (NEGATIVE); PROTEIN URINE TRACE (NEGATIVE); SPECIFIC GRAVITY URINE 1.029 (1.005-1.030)
[2019-03-17 19:25] LABS: CLARITY URINE HAZY (CLEAR)
[2019-03-17 19:29] LABS: CHLORIDE 108 mEq/L (98-107); PROTHROMBIN TIME 10.6 sec (9.6-11.0)
[2019-03-17] MEDS ORDERED: METHYLPREDNISOLONE SOD SUCC 125 MG/2 ML VIAL IV ONE (19:45)
[2019-03-17] MEDS ORDERED: MORPHINE SULFATE 4 MG/ML CPJ (NOT FOR IM USE) IV ONE ×2 (19:45→21:15)
[2019-03-17] MEDS ORDERED: DIPHENHYDRAMINE 50MG/ML VIAL IV ONE ×2 (19:45→21:15)
[2019-03-17] MEDS ORDERED: FAMOTIDINE 20MG/2ML VIAL IV ONE (20:15)
[2019-03-17] MEDS ORDERED: ONDANSETRON HCL 4MG/2ML INJ IV ONE (20:15)
[2019-03-17] MEDS ORDERED: METHYLPREDNISOLONE SOD SUCC 40 MG/ML VIAL IV SCH (20:30)
[2019-03-17] MEDS ORDERED: ACETAMINOPHEN 325MG TABLET PO PRN (20:30)
[2019-03-17] MEDS ORDERED: HYDROCODONE/ACETAMINOPHEN 5/325MG TABLET PO PRN (20:30)
[2019-03-17] MEDS ORDERED: METHYLPREDNISOLONE SOD SUCC 125 MG/2 ML VIAL IV SCH (20:45)
[2019-03-17] MEDS: ATORVASTATIN CALCIUM 10MG TABLET PO SCH (22:30)
[2019-03-17] MEDS: GABAPENTIN 400MG CAPSULE PO SCH (22:30)
[2019-03-17] MEDS ORDERED: METHYLPREDNISOLONE SOD IV SCH (23:00)
[2019-03-17] MEDS ORDERED: SODIUM CHLORIDE 0.9% IV SCH (23:00)
[2019-03-18] VITALS: BP 104/47
[2019-03-18] MEDS: MORPHINE SULFATE 4 MG/ML CPJ (NOT FOR IM USE) IV PRN ×2 (00:34→05:36)
[2019-03-18] MEDS: DIPHENHYDRAMINE 25MG CAPSULE PO PRN ×2 (00:34→06:41)
[2019-03-18] MEDS ORDERED: LORA-249 MT (01:51)
[2019-03-18] MEDS ORDERED: METO5TAB86 MT (01:51)
[2019-03-18] MEDS ORDERED: BACL-141 MT (01:51)
[2019-03-18 04:00] VITALS: BP 109/61
[2019-03-18] MEDS: GABAPENTIN 400MG CAPSULE PO SCH ×3 (05:35→22:39)
[2019-03-18 06:34] LABS: HEMOGLOBIN. 12.2 g/dL (12.0-16.0); MEAN CORPUSCULAR HEMOGLOBIN 32.8 pg (28.0-32.0); MEAN CORPUSCULAR VOLUME 96.8 fL (81.0-99.0); MEAN PLATELET VOLUME 8.2 fl (7.4-10.4); PLATELET 183 x1000/uL (130-400); RED BLOOD CELL COUNT 3.73 mill/uL (4.2-5.4)
[2019-03-18] MEDS: OMEPRAZOLE 20MG CAPSULE EXTENDED RELEASE PO SCH (06:41)
[2019-03-18 07:00] LABS: CHLORIDE 104 mEq/L (98-107)
[2019-03-18 08:00] VITALS: BP 110/68
[2019-03-18] MEDS: MIDODRINE HCL 5MG TABLET PO SCH ×3 (08:19→17:27)
[2019-03-18 09:51] VITALS: BP 134/58
[2019-03-18] MEDS: HYDROMORPHONE HCL/PF 2MG/ML CPJ IV PRN ×4 (10:35→22:40)
[2019-03-18] MEDS: CITALOPRAM HYDROBROMIDE 10MG TABLET PO SCH (10:35)
[2019-03-18 12:10] VITALS: BP 126/54
[2019-03-18] MEDS: METOCLOPRAMIDE HCL 10MG/2ML VIAL IV SCH ×3 (12:22→23:00)
[2019-03-18] MEDS: LORAZEPAM 1MG TABLET PO PRN (12:38)
[2019-03-18] MEDS: CHOLECALCIFEROL (D3) 1000 UNIT TABLET PO SCH (13:51)
[2019-03-18] MEDS: ZINC SULFATE 220 MG ( 50 ) CAPSULE PO SCH (13:51)
[2019-03-18] MEDS: ASCORBIC ACID 500 MG TABLET PO SCH (13:51)
[2019-03-18] MEDS: TAMSULOSIN HCL 0.4MG SR CAPSULE PO SCH (13:51)
[2019-03-18 15:54] VITALS: BP 110/58
[2019-03-18] MEDS: SODIUM CHLORIDE 0.9% IV SCH (16:08)
[2019-03-18] MEDS: METHYLPREDNISOLONE SOD IV SCH (16:08)
[2019-03-18] MEDS: SUCRALFATE 1G TABLET PO SCH ×2 (17:27→20:37)
[2019-03-18] MEDS: DOCUSATE SODIUM 100MG CAPSULE PO SCH (17:27)
[2019-03-18] MEDS: ENOXAPARIN 40MG/0.4ML SYR SUBCUT SCH (17:35)
[2019-03-18 17:49] LABS: PLATELET ESTIMATE NORMAL
[2019-03-18] MEDS: LEVETIRACETAM 500MG TABLET PO SCH (20:37)
[2019-03-18] MEDS: POLYETHYLENE GLYCOL 3350 (17GM) 1 DOSE PACK PO SCH (20:37)
[2019-03-18] MEDS: ATORVASTATIN CALCIUM 10MG TABLET PO SCH (20:37)
[2019-03-18] MEDS: CYCLOBENZAPRINE 10MG TABLET PO PRN (22:39)
[2019-03-19] MEDS: GABAPENTIN 400MG CAPSULE PO SCH ×3 (06:38→21:58)
[2019-03-19] MEDS: HYDROMORPHONE HCL/PF 2MG/ML CPJ IV PRN ×5 (06:39→23:32)
[2019-03-19] MEDS: OMEPRAZOLE 20MG CAPSULE EXTENDED RELEASE PO SCH (06:39)
[2019-03-19] MEDS: SUCRALFATE 1G TABLET PO SCH ×4 (06:39→20:41)
[2019-03-19] MEDS: METOCLOPRAMIDE HCL 10MG/2ML VIAL IV SCH ×4 (06:39→23:31)
[2019-03-19 08:10] VITALS: BP 98/62
[2019-03-19] MEDS: DOCUSATE SODIUM 100MG CAPSULE PO SCH ×2 (08:39→17:08)
[2019-03-19] MEDS: ZINC SULFATE 220 MG ( 50 ) CAPSULE PO SCH (08:42)
[2019-03-19] MEDS: CHOLECALCIFEROL (D3) 1000 UNIT TABLET PO SCH (08:42)
[2019-03-19] MEDS: CITALOPRAM HYDROBROMIDE 10MG TABLET PO SCH (08:42)
[2019-03-19] MEDS: LEVETIRACETAM 500MG TABLET PO SCH ×2 (08:42→20:40)
[2019-03-19] MEDS: MIDODRINE HCL 5MG TABLET PO SCH ×3 (08:42→17:08)
[2019-03-19] MEDS: ASCORBIC ACID 500 MG TABLET PO SCH (08:42)
[2019-03-19] MEDS: TAMSULOSIN HCL 0.4MG SR CAPSULE PO SCH (08:42)
[2019-03-19] MEDS: LORAZEPAM 1MG TABLET PO PRN (08:42)
[2019-03-19] MEDS: BISACODYL 10MG SUPP PR SCH (09:15)
[2019-03-19] MEDS: LACTULOSE 20G/30ML UDC PO SCH ×3 (11:01→17:00)
[2019-03-19 11:36] VITALS: BP 124/66
[2019-03-19 15:00] VITALS: BP 104/56
[2019-03-19] MEDS: METHYLPREDNISOLONE SOD IV SCH (15:38)
[2019-03-19] MEDS: SODIUM CHLORIDE 0.9% IV SCH (15:38)
[2019-03-19] MEDS: ENOXAPARIN 40MG/0.4ML SYR SUBCUT SCH (17:09)
[2019-03-19 20:00] VITALS: BP 114/62
[2019-03-19] MEDS ORDERED: VANCOMYCIN 1250MG in DEXTROSE 5% WATER 250ML IV NR (20:00)
[2019-03-19] MEDS: ATORVASTATIN CALCIUM 10MG TABLET PO SCH (20:40)
[2019-03-19] MEDS: POLYETHYLENE GLYCOL 3350 (17GM) 1 DOSE PACK PO SCH (20:41)
[2019-03-20] VITALS: BP 115/57
[2019-03-20] MEDS: LORAZEPAM 1MG TABLET PO PRN (02:28)
[2019-03-20] MEDS ORDERED: VANCOMYCIN 750 MG PREMIX 150 ML IV SCH (03:00)
[2019-03-20] MEDS: HYDROMORPHONE HCL/PF 2MG/ML CPJ IV PRN ×4 (03:51→19:16)
[2019-03-20 04:00] VITALS: BP 120/59
[2019-03-20 05:59] LABS: HEMATOCRIT. 32.9 % (36.0-48.0); HEMOGLOBIN. 11.1 g/dL (12.0-16.0); MEAN CORPUSCULAR HEMOGLOBIN 32.5 pg (28.0-32.0); MEAN CORPUSCULAR VOLUME 96.3 fL (81.0-99.0); MEAN PLATELET VOLUME 8.4 fl (7.4-10.4); PLATELET 168 x1000/uL (130-400); RED BLOOD CELL COUNT 3.42 mill/uL (4.2-5.4); RED CELL DISTRIBUTION WIDTH 13.4 % (11.6-14.6)
[2019-03-20 06:15] LABS: CHLORIDE 103 mEq/L (98-107)
[2019-03-20] MEDS: SUCRALFATE 1G TABLET PO SCH ×4 (06:28→21:50)
[2019-03-20] MEDS: METOCLOPRAMIDE HCL 10MG/2ML VIAL IV SCH ×3 (06:28→19:06)
[2019-03-20] MEDS: OMEPRAZOLE 20MG CAPSULE EXTENDED RELEASE PO SCH (06:28)
[2019-03-20] MEDS: GABAPENTIN 400MG CAPSULE PO SCH ×3 (06:28→21:51)
[2019-03-20 08:28] VITALS: BP 130/65
[2019-03-20] MEDS: CHOLECALCIFEROL (D3) 1000 UNIT TABLET PO SCH (08:39)
[2019-03-20] MEDS: DOCUSATE SODIUM 100MG CAPSULE PO SCH ×2 (08:40→19:06)
[2019-03-20] MEDS: CITALOPRAM HYDROBROMIDE 10MG TABLET PO SCH (08:40)
[2019-03-20] MEDS: ZINC SULFATE 220 MG ( 50 ) CAPSULE PO SCH (08:40)
[2019-03-20] MEDS: TAMSULOSIN HCL 0.4MG SR CAPSULE PO SCH (08:41)
[2019-03-20] MEDS: MIDODRINE HCL 5MG TABLET PO SCH ×3 (08:43→19:06)
[2019-03-20] MEDS: LEVETIRACETAM 500MG TABLET PO SCH ×2 (08:44→21:50)
[2019-03-20] MEDS: ASCORBIC ACID 500 MG TABLET PO SCH (08:44)
[2019-03-20] MEDS: BISACODYL 10MG SUPP PR SCH (09:46)
[2019-03-20] MEDS: VANCOMYCIN 1 G PREMIX 200 ML IV SCH ×2 (10:32→21:59)
[2019-03-20 10:50] LABS: PLATELET ESTIMATE NORMAL
[2019-03-20 11:48] VITALS: BP 101/37
[2019-03-20 15:57] VITALS: BP 92/45
[2019-03-20] MEDS: METHYLPREDNISOLONE SOD IV SCH (16:46)
[2019-03-20] MEDS: SODIUM CHLORIDE 0.9% IV SCH (16:46)
[2019-03-20] MEDS: ENOXAPARIN 40MG/0.4ML SYR SUBCUT SCH (19:06)
[2019-03-20 20:00] VITALS: BP 110/50
[2019-03-20] MEDS: POLYETHYLENE GLYCOL 3350 (17GM) 1 DOSE PACK PO SCH (21:00)
[2019-03-20] MEDS: ATORVASTATIN CALCIUM 10MG TABLET PO SCH (21:50)
[2019-03-21] VITALS (7 sets, daily range): BP systolic 107–133; BP diastolic 52–68
[2019-03-21] MEDS: HYDROMORPHONE HCL/PF 2MG/ML CPJ IV PRN ×5 (00:16→21:33)
[2019-03-21] MEDS: METOCLOPRAMIDE HCL 10MG/2ML VIAL IV SCH ×5 (00:26→23:01)
[2019-03-21 06:51] LABS: HEMATOCRIT. 35.6 % (36.0-48.0); HEMOGLOBIN. 11.9 g/dL (12.0-16.0); MEAN CORPUSCULAR HEMOGLOBIN 32.3 pg (28.0-32.0); MEAN CORPUSCULAR VOLUME 96.6 fL (81.0-99.0); MEAN PLATELET VOLUME 8.7 fl (7.4-10.4); PLATELET 165 x1000/uL (130-400); RED BLOOD CELL COUNT 3.68 mill/uL (4.2-5.4); RED CELL DISTRIBUTION WIDTH 13.3 % (11.6-14.6)
[2019-03-21] MEDS: GABAPENTIN 400MG CAPSULE PO SCH ×3 (06:56→21:19)
[2019-03-21 07:23] LABS: CHLORIDE 102 mEq/L (98-107)
[2019-03-21] MEDS: LEVETIRACETAM 500MG TABLET PO SCH ×2 (08:20→21:19)
[2019-03-21] MEDS: SUCRALFATE 1G TABLET PO SCH ×4 (08:21→21:19)
[2019-03-21] MEDS: OMEPRAZOLE 20MG CAPSULE EXTENDED RELEASE PO SCH (08:21)
[2019-03-21] MEDS: ASCORBIC ACID 500 MG TABLET PO SCH (08:22)
[2019-03-21] MEDS: TAMSULOSIN HCL 0.4MG SR CAPSULE PO SCH (08:22)
[2019-03-21] MEDS: ZINC SULFATE 220 MG ( 50 ) CAPSULE PO SCH (08:22)
[2019-03-21] MEDS: CHOLECALCIFEROL (D3) 1000 UNIT TABLET PO SCH (08:22)
[2019-03-21] MEDS: DOCUSATE SODIUM 100MG CAPSULE PO SCH ×2 (08:23→17:00)
[2019-03-21] MEDS: MIDODRINE HCL 5MG TABLET PO SCH ×3 (08:23→17:00)
[2019-03-21] MEDS: CITALOPRAM HYDROBROMIDE 10MG TABLET PO SCH (08:23)
[2019-03-21] MEDS: VANCOMYCIN 1 G PREMIX 200 ML IV SCH ×2 (08:23→21:42)
[2019-03-21] MEDS: BISACODYL 10MG SUPP PR SCH (08:23)
[2019-03-21] MEDS: LORAZEPAM 1MG TABLET PO PRN (08:32)
[2019-03-21 11:39] LABS: PLATELET ESTIMATE NORMAL
[2019-03-21] MEDS: SODIUM CHLORIDE 0.9% IV SCH (16:36)
[2019-03-21] MEDS: METHYLPREDNISOLONE SOD IV SCH (16:36)
[2019-03-21] MEDS: ENOXAPARIN 40MG/0.4ML SYR SUBCUT SCH (17:00)
[2019-03-21] MEDS: POLYETHYLENE GLYCOL 3350 (17GM) 1 DOSE PACK PO SCH (21:00)
[2019-03-21] MEDS: ATORVASTATIN CALCIUM 10MG TABLET PO SCH (21:19)
[2019-03-21] MEDS: DIPHENHYDRAMINE 25MG CAPSULE PO PRN (21:19)
[2019-03-22] MEDS: HYDROMORPHONE HCL/PF 2MG/ML CPJ IV PRN ×5 (03:00→20:58)
[2019-03-22] MEDS: ONDANSETRON HCL 4MG/2ML INJ IV PRN ×2 (03:01→22:49)
[2019-03-22 04:00] VITALS: BP 131/69
[2019-03-22] MEDS: OMEPRAZOLE 20MG CAPSULE EXTENDED RELEASE PO SCH (06:32)
[2019-03-22] MEDS: GABAPENTIN 400MG CAPSULE PO SCH ×3 (06:32→21:00)
[2019-03-22] MEDS: METOCLOPRAMIDE HCL 10MG/2ML VIAL IV SCH ×3 (06:32→17:38)
[2019-03-22] MEDS: SUCRALFATE 1G TABLET PO SCH ×4 (06:33→20:56)
[2019-03-22 07:54] VITALS: BP 137/68
[2019-03-22] MEDS: CITALOPRAM HYDROBROMIDE 10MG TABLET PO SCH (08:06)
[2019-03-22] MEDS: LEVETIRACETAM 500MG TABLET PO SCH ×2 (08:06→20:56)
[2019-03-22] MEDS: DOCUSATE SODIUM 100MG CAPSULE PO SCH ×2 (08:07→17:37)
[2019-03-22] MEDS: CHOLECALCIFEROL (D3) 1000 UNIT TABLET PO SCH (08:07)
[2019-03-22] MEDS: MIDODRINE HCL 5MG TABLET PO SCH ×3 (08:07→17:37)
[2019-03-22] MEDS: TAMSULOSIN HCL 0.4MG SR CAPSULE PO SCH (08:07)
[2019-03-22] MEDS: LORAZEPAM 1MG TABLET PO PRN ×2 (08:07→17:48)
[2019-03-22] MEDS: BISACODYL 10MG SUPP PR SCH (08:09)
[2019-03-22] MEDS: ASCORBIC ACID 500 MG TABLET PO SCH (08:09)
[2019-03-22] MEDS: ZINC SULFATE 220 MG ( 50 ) CAPSULE PO SCH (08:09)
[2019-03-22] MEDS: VANCOMYCIN 1 G PREMIX 200 ML IV SCH (08:09)
[2019-03-22 11:52] VITALS: BP 112/65
[2019-03-22 15:59] VITALS: BP 113/59
[2019-03-22] MEDS: SODIUM CHLORIDE 0.9% IV SCH (16:18)
[2019-03-22] MEDS: METHYLPREDNISOLONE SOD IV SCH (16:18)
[2019-03-22 16:34] LABS: METHADONE URINE SCREEN NEGATIVE (NEGATIVE)
[2019-03-22 16:35] LABS: *AMPHETAMINES SCREEN URINE NEGATIVE (NEGATIVE); *BARBITURATES SCREEN URINE NEGATIVE (NEGATIVE); *BENZODIAZEPINES SCREEN URINE NEGATIVE (NEGATIVE); *COCAINE SCREEN URINE NEGATIVE (NEGATIVE); PHENCYCLIDINE URINE SCREEN NEGATIVE (NEGATIVE)
[2019-03-22 16:48] LABS: CANNABINOID URINE SCREEN PRESUMTIVE POSITIVE (NEGATIVE); OPIATES URINE SCREEN PRESUMTIVE POSITIVE (NEGATIVE)
[2019-03-22] MEDS: VANCOMYCIN 750 MG PREMIX 150 ML IV SCH (17:37)
[2019-03-22] MEDS: ENOXAPARIN 40MG/0.4ML SYR SUBCUT SCH (17:38)
[2019-03-22 20:00] VITALS: BP 114/54
[2019-03-22] MEDS: POLYETHYLENE GLYCOL 3350 (17GM) 1 DOSE PACK PO SCH ×2 (20:56→21:00)
[2019-03-22] MEDS: ATORVASTATIN CALCIUM 10MG TABLET PO SCH (20:56)
[2019-03-22] MEDS: CYCLOBENZAPRINE 10MG TABLET PO PRN (22:47)
[2019-03-23 00:19] VITALS: BP 113/61
[2019-03-23] MEDS: METOCLOPRAMIDE HCL 10MG/2ML VIAL IV SCH ×3 (01:05→12:11)
[2019-03-23] MEDS: VANCOMYCIN 750 MG PREMIX 150 ML IV SCH ×3 (01:08→17:11)
[2019-03-23] MEDS: HYDROMORPHONE HCL/PF 2MG/ML CPJ IV PRN ×2 (04:17→08:48)
[2019-03-23 04:41] VITALS: BP 133/82
[2019-03-23] MEDS: OMEPRAZOLE 20MG CAPSULE EXTENDED RELEASE PO SCH (06:23)
[2019-03-23] MEDS: GABAPENTIN 400MG CAPSULE PO SCH ×2 (06:23→13:19)
[2019-03-23] MEDS: SUCRALFATE 1G TABLET PO SCH ×2 (06:25→12:11)
[2019-03-23 08:12] VITALS: BP 143/63
[2019-03-23 08:14] LABS: HEMATOCRIT. 36.3 % (36.0-48.0); HEMOGLOBIN. 12.3 g/dL (12.0-16.0); MEAN CORPUSCULAR HEMOGLOBIN 32.6 pg (28.0-32.0); MEAN PLATELET VOLUME 8.2 fl (7.4-10.4); PLATELET 177 x1000/uL (130-400); RED BLOOD CELL COUNT 3.78 mill/uL (4.2-5.4); RED CELL DISTRIBUTION WIDTH 13.2 % (11.6-14.6)
[2019-03-23 08:20] LABS: CHLORIDE 101 mEq/L (98-107)
[2019-03-23 08:27] LABS: VANCOMYCIN TROUGH 11.4 ug/mL (5.0-10.0)
[2019-03-23] MEDS: CITALOPRAM HYDROBROMIDE 10MG TABLET PO SCH (08:40)
[2019-03-23] MEDS: MIDODRINE HCL 5MG TABLET PO SCH ×2 (08:41→13:19)
[2019-03-23] MEDS: LEVETIRACETAM 500MG TABLET PO SCH (08:41)
[2019-03-23] MEDS: DOCUSATE SODIUM 100MG CAPSULE PO SCH ×2 (08:41→17:00)
[2019-03-23] MEDS: ASCORBIC ACID 500 MG TABLET PO SCH (08:41)
[2019-03-23] MEDS: CHOLECALCIFEROL (D3) 1000 UNIT TABLET PO SCH (08:41)
[2019-03-23] MEDS: ZINC SULFATE 220 MG ( 50 ) CAPSULE PO SCH (08:41)
[2019-03-23] MEDS: TAMSULOSIN HCL 0.4MG SR CAPSULE PO SCH (08:41)
[2019-03-23] MEDS: BISACODYL 10MG SUPP PR SCH (08:42)
[2019-03-23] MEDS: LORAZEPAM 1MG TABLET PO PRN (10:11)
[2019-03-23] MEDS ORDERED: PREDNISONE 20MG TABLET PO SCH (12:30)
[2019-03-23 12:41] VITALS: BP 126/60
[2019-03-23] MEDS: CYCLOBENZAPRINE 10MG TABLET PO PRN (12:42)
[2019-03-23] MEDS ORDERED: HYDROMORPHONE HCL/PF 2MG/ML CPJ IV PRN (15:45)
[2019-03-23 16:10] VITALS: BP 94/53
[2019-03-23] MEDS: ENOXAPARIN 40MG/0.4ML SYR SUBCUT SCH (17:16)
[2019-03-23 17:50] VITALS: BP 94/63
[2019-03-23 18:36] LABS: PLATELET ESTIMATE NORMAL
[2019-03-25] MEDS ORDERED: PREDNISONE 10MG TABLET PO SCH (09:00)
[2019-03-27] MEDS ORDERED: PREDNISONE 20MG TABLET PO SCH (09:00)
[2019-03-29] MEDS ORDERED: PREDNISONE 10MG TABLET PO SCH (09:00)
[2019-03-31] MEDS ORDERED: PREDNISONE 20MG TABLET PO SCH (09:00)
[2019-04-02] MEDS ORDERED: PREDNISONE 10MG TABLET PO SCH (09:00)
== END 2019-03-23 18:55 | disposition short-term general hospital (02) | DRG 43 ==
LOC: ER 18:32 → 6EST 19:41 → EDBEDREQTM 20:14 → EDBEDREQ 20:14 → ENRESERV 20:51 → 6WST 03-18 09:35
PROVIDERS: ADMIT Internal Medicine; ATTEND Internal Medicine
DX: G35 Multiple sclerosis (principal); K59.2 Neurogenic bowel, not elsewhere classified; E87.8 Other disorders of electrolyte and fluid balance, not elsewhere classified; L89.90 Pressure ulcer of unspecified site, unspecified stage; L03.115 Cellulitis of right lower limb; E78.5 Hyperlipidemia, unspecified; G82.50 Quadriplegia, unspecified; F32.9 Major depressive disorder, single episode, unspecified; F41.9 Anxiety disorder, unspecified; G40.909 Epilepsy, unspecified, not intractable, without status epilepticus; G89.4 Chronic pain syndrome; K21.9 Gastro-esophageal reflux disease without esophagitis; K59.00 Constipation, unspecified; F99 Mental disorder, not otherwise specified; M48.061 Spinal stenosis, lumbar region without neurogenic claudication; F12.90 Cannabis use, unspecified, uncomplicated; G95.89 Other specified diseases of spinal cord; E78.00 Pure hypercholesterolemia, unspecified; Z82.0 Family history of epilepsy and other diseases of the nervous system; Z82.49 Family history of ischemic heart disease and other diseases of the circulatory system; Z98.1 Arthrodesis status; Z98.891 History of uterine scar from previous surgery; Z88.6 Allergy status to analgesic agent; Z88.0 Allergy status to penicillin; Z88.8 Allergy status to other drugs, medicaments and biological substances; Z79.899 Other long term (current) drug therapy; Z98.51 Tubal ligation status
CPT/HCPCS: 36415; 73560; 73700; 80048; 80202; 80305; 86703; 93005; 96374; 96375; 97163; 97166; 99285; C1893; J1170; J1200; J1650; J2270; J2405; J2765; J2930; J3370; J3490; J7040; J7050; J7060; J7512; Q0163; A4315